=== PATIENT | female | born 1955 | race Caucasian/White ===

== ENCOUNTER 2019-04-05 16:45 | Inpatient (IN) ==
[2019-04-05] MEDS ORDERED: ASPIRIN 325 MG TABLET PO STA (17:21)
[2019-04-05] MEDS ORDERED: NITROGLYCERIN SL 0.4 MG TABLET SL PRN (17:21)
[2019-04-05] MEDS ORDERED: ENOXAPARIN 100 MG/ML SYRINGE SUBCUT STA (17:21)
[2019-04-05 18:02] LABS: Basophils # 0.1 10*3/uL (0.0-0.2); Basophils % 0.9 % (0.0-0.8); Eosinophils # 0.4 10*3/uL (0.0-0.87); Eosinophils % 4.4 % (0.00-10.9); Hematocrit 41.6 VOL% (35.7-47.0); Hemoglobin 13.5 GM/DL (12.0-16.0); Immature Granulocytes % 0.2 %; Immature Granulocytes Absolute 0.02 #; Lymphocytes # 2.8 10*3/uL (1.4-4.0); Lymphocytes % 34.3 % (21.3-54.2); Mean Corpuscular HGB Conc 32.5 GM/DL (32-36); Mean Corpuscular Volume 93.7 FL (87-102); Mean Platelet Volume 10.7 FL (9.6-12.0); Monocytes % 8.9 % (1.7-12.7); Neutrophils % 51.3 % (38.7-73.9); Platelet Count 304 T/CUMM (130-400); Red Blood Count 4.44 MC/CUMM (3.8-5.5); Red Cell Distribution Width 12.6 % (9.3-17.3); White Blood Count 8.2 T/CUMM (4-12)
[2019-04-05 18:20] LABS: Calcium 9.6 MG/DL (8.5-10.1); Osmolality,Calculated 276.5 MOS/KG (273-304)
[2019-04-05] MEDS ORDERED: MORPHINE 4 MG/1 ML VIAL IV PRN (18:33)
[2019-04-05] MEDS ORDERED: MAGNESIUM SULF RIDER 4 GM in PREMIX 1 EACH IV PRN (18:33)
[2019-04-05] MEDS ORDERED: MAGNESIUM SULF RIDER 2 GM in PREMIX 1 EACH IV PRN (18:33)
[2019-04-05] MEDS ORDERED: POTASSIUM CHLORIDE 20 MEQ TABLET PO PRN (18:33)
[2019-04-05] MEDS ORDERED: ZALEPLON 5 MG CAPSULE PO PRN (18:33)
[2019-04-05] MEDS ORDERED: ONDANSETRON 4 MG/2 ML VIAL IV PRN (18:33)
[2019-04-05] MEDS: DEXTROSE 5% NACL 0.45% 1,000 ML IV SCH (20:56)
[2019-04-05] MEDS: LORazepam 1 MG TABLET PO SCH (20:57)
[2019-04-05] MEDS: NITROGLYCERIN 2% OINT 1 INCH/GM PACK TOP SCH (20:57)
[2019-04-05] MEDS: traZODone 50 MG TABLET PO SCH (20:57)
[2019-04-06 01:24] LABS: Risk Ratio 6.85; VLDL CHOLESTEROL 90.2 MG/DL
[2019-04-06] MEDS: DEXTROSE 5% NACL 0.45% 1,000 ML IV SCH ×2 (04:54→14:01)
[2019-04-06] MEDS: DULoxetine 30 MG CAPSULE PO SCH (08:38)
[2019-04-06] MEDS: LORazepam 1 MG TABLET PO SCH ×2 (08:39→21:39)
[2019-04-06] MEDS: ATORVASTATIN 10 MG TABLET PO SCH (08:39)
[2019-04-06] MEDS: PANTOPRAZOLE 40 MG TABLET PO SCH (08:40)
[2019-04-06] MEDS: ENOXAPARIN 80 MG/0.8 ML SYRINGE SUBCUT SCH ×2 (08:40→21:38)
[2019-04-06] MEDS: NITROGLYCERIN 2% OINT 1 INCH/GM PACK TOP SCH ×2 (08:40→21:39)
[2019-04-06] MEDS ORDERED: VENLAFAXINE 75 MG TABLET PO SCH (09:00)
[2019-04-06] MEDS ORDERED: MAGNESIUM SULF RIDER 2 GM in PREMIX 1 EACH IV PRN (13:30)
[2019-04-06] MEDS ORDERED: POTASSIUM CHLORIDE RIDER 10 MEQ in PREMIX 1 EACH IV PRN (13:30)
[2019-04-06] MEDS ORDERED: MELOXICAM 7.5 MG TABLET PO SCH (21:00)
[2019-04-06] MEDS: traZODone 50 MG TABLET PO SCH (21:39)
[2019-04-07 03:40] LABS: Basophils # 0.1 10*3/uL (0.0-0.2); Eosinophils # 0.6 10*3/uL (0.0-0.87); Eosinophils % 8.1 % (0.00-10.9); Hematocrit 39.4 VOL% (35.7-47.0); Hemoglobin 12.5 GM/DL (12.0-16.0); Immature Granulocytes % 0.1 %; Immature Granulocytes Absolute 0.01 #; Lymphocytes # 3.2 10*3/uL (1.4-4.0); Lymphocytes % 45.3 % (21.3-54.2); Mean Corpuscular HGB Conc 31.7 GM/DL (32-36); Mean Corpuscular Volume 95.6 FL (87-102); Mean Platelet Volume 10.7 FL (9.6-12.0); Neutrophils % 36.5 % (38.7-73.9); Platelet Count 258 T/CUMM (130-400); Red Blood Count 4.12 MC/CUMM (3.8-5.5); Red Cell Distribution Width 12.6 % (9.3-17.3); White Blood Count 7.1 T/CUMM (4-12)
[2019-04-07 03:43] LABS: INR 0.9; PT Patient Result 9.9 SECS
[2019-04-07 03:58] LABS: Calcium 8.5 MG/DL (8.5-10.1); Osmolality,Calculated 284.1 MOS/KG (273-304)
[2019-04-07 05:05] LABS: Eosinophils 12 % (0-10); Lymphocytes 43 % (20-55); Platelet Estimate Adequate; Segmented Neutrophils 38 % (50-85); Total Cells Counted 100
[2019-04-07 05:06] LABS: Hypochromasia 1+
[2019-04-07] MEDS ORDERED: DIAZEPAM 5 MG TABLET PO ONE ×2 (06:30→14:30)
[2019-04-07] MEDS ORDERED: diphenhydrAMINE CAP 25 MG CAPSULE PO ONE ×2 (06:30→14:30)
[2019-04-07] MEDS: PANTOPRAZOLE 40 MG TABLET PO SCH (09:21)
[2019-04-07] MEDS: DULoxetine 30 MG CAPSULE PO SCH (09:22)
[2019-04-07] MEDS: ATORVASTATIN 10 MG TABLET PO SCH (09:22)
[2019-04-07] MEDS: LORazepam 1 MG TABLET PO SCH (09:22)
[2019-04-07] MEDS: NITROGLYCERIN 2% OINT 1 INCH/GM PACK TOP SCH (09:24)
[2019-04-07] MEDS ORDERED: SODIUM BICARBONATE 2.4 MEQ/5 ML VIAL ONE (13:56)
[2019-04-07] MEDS ORDERED: HEPARIN/NACL 0.9% 2 UNITS/ML 1,000 ML IV ONE (13:56)
[2019-04-07] MEDS ORDERED: LIDOCAINE 1% 20 ML VIAL ONE (13:56)
[2019-04-07] MEDS ORDERED: fentaNYL 100 MCG/2 ML VIAL ONE (15:49)
[2019-04-07] MEDS ORDERED: MIDAZOLAM 2 MG/2 ML VIAL ONE ×2 (15:49→16:09)
[2019-04-07] MEDS ORDERED: diphenhydrAMINE CAP 25 MG CAPSULE PO PRN (15:58)
[2019-04-07] MEDS ORDERED: MAGNESIUM HYDROXIDE SUSP 30 ML UDCUP PO PRN (15:59)
[2019-04-07] MEDS ORDERED: ACETAMINOPHEN 325 MG TABLET PO PRN (16:45)
[2019-04-07] MEDS ORDERED: ACETAMINOPHEN/CODEINE 300-30 MG TABLET PO PRN (16:45)
[2019-04-07 19:05] VITALS: BP 110/61
== END 2019-04-07 20:02 | disposition home or self-care (01) | DRG 287 ==
LOC: N.TELES 16:45 → N.ED 16:45 → N.TELES 19:30 → N.TELEN 04-06 07:26
PROVIDERS: ADMIT Internal Medicine Cardiovascular Disease; ATTEND Internal Medicine Cardiovascular Disease
PROC: CLCCHCL (ICD-10-PCS; 2019-04-07 17:45)